=== PATIENT | female | born 1980 | race Two or more races ===

== ENCOUNTER 2019-05-24 18:51 | Emergency (ER) | payer MEDICAID ==
[~2019-05-24] VITALS: Ht 162.6 cm; Wt 73.0 kg
--- NOTE | 2019-05-24 19:41 | NUR ---
BIBS. FLU LIKE SYMPTOMS X 2 WEEKS. PRODUCTIVE COUGH, NASAL CONGESTION,NAUSEA AND DIZZINESS TO ER BED 3 MD AT BEDSIDE FOR EVAL
[2019-05-24] MEDS ORDERED: ONDANSETRON HCL/PF 4 MG/2 ML VIAL ONE (19:59)
[2019-05-24] MEDS ORDERED: KETOROLAC TROMETHAMINE 15 MG/ML VIAL ONE (19:59)
[2019-05-24] MEDS ORDERED: IPRATROPIUM NEB FS 0.5 MG/2.5 ML AMPUL.NEB NEB ONE (20:00)
[2019-05-24] MEDS ORDERED: KETOROLAC TROMETHAMINE INJ 30 MG/ML VIAL IV ONE (20:00)
[2019-05-24] MEDS ORDERED: ALBUTEROL FS 2.5 MG/3 ML VIAL.NEB NEB ONE (20:00)
[2019-05-24] MEDS ORDERED: ONDANSETRON HCL/PF 4 MG/2 ML VIAL IVP ONE (20:00)
[2019-05-24] MEDS ORDERED: IV NS 0.9% 1,000 ML BAG IV ONE (20:00)
[2019-05-24 20:12] LABS: BASOPHILS % (AUTO) 0.7 % (0.0-2.0); EOSINOPHILS % (AUTO) 1.8 % (0.0-6.0); HEMATOCRIT 34 % (33-45); HEMOGLOBIN 11.6 g/dL (11.5-14.8); LYMPHOCYTES # (AUTO) 2.3 /CMM (0.8-4.8); LYMPHOCYTES % (AUTO) 36.7 % (20.0-44.0); MEAN CORPUSCULAR HGB CONC 34 g/dl (31.0-36.0); MEAN CORPUSCULAR VOLUME 87 fL (82-100); MONOCYTES # (AUTO) 0.5 /CMM (0.1-1.30); MONOCYTES % (AUTO) 8.5 % (2.0-12.0); NEUTROPHILS # (AUTO) 3.2 /CMM (1.8-8.9); NEUTROPHILS % (AUTO) 52.3 % (43.0-81.0); PLATELET COUNT (AUTO) 242 /CMM (150-450); RED BLOOD CELL COUNT(AUTO) 3.86 MIL/uL (4.0-5.2); WHITE BLOOD COUNT (AUTO) 6.1 K/uL (4.3-11.0)
[2019-05-24 20:19] LABS: CALCIUM, SERUM 8.9 mg/dL (8.5-10.1); CARBON DIOXIDE 27 mmol/L (21-32); CHLORIDE 107 mmol/L (98-107); CREATININE 0.6 mg/dL (0.6-1.3); GLUCOSE 93 mg/dL (74-106); SODIUM SERUM 141 mmol/L (136-145); UREA NITROGEN, BLOOD 6 mg/dL (7-18)
[2019-05-24] MEDS ORDERED: ALBUTEROL FS 2.5 MG/3 ML VIAL.NEB ONE (20:22)
[2019-05-24] MEDS ORDERED: IPRATROPIUM NEB FS 0.5 MG/2.5 ML AMPUL.NEB ONE (20:22)
[2019-05-24 20:25] LABS: ALANINE AMINOTRANSFERASE 26 U/L (12-78); ALBUMIN 3.6 g/dL (3.4-5.0); ALKALINE PHOSPHATASE 70 U/L (46-116); ASPARTATE AMINOTRANSFERASE 19 U/L (15-37); BILIRUBIN,DIRECT 0.1 mg/dL (0.0-0.2); BILIRUBIN,TOTAL 0.3 mg/dL (0.2-1.0); TOTAL PROTEIN, SERUM 7.2 g/dL (6.4-8.2)
--- NOTE | 2019-05-24 20:25 | NUR ---
RT AT BEDSIDE FOR TX
[2019-05-24 20:59] VITALS: BP 105/65
--- NOTE | 2019-05-24 20:59 | NUR ---
Patient discharged to home in stable condition. Written and verbal after care instructions given. Patient verbalizes understanding of instruction.
== END 2019-05-24 21:00 | disposition home or self-care (01) ==
LOC: ER 19:04
DX: J06.9 Acute upper respiratory infection, unspecified (principal); Z90.89 Acquired absence of other organs; Z90.49 Acquired absence of other specified parts of digestive tract; Z88.0 Allergy status to penicillin
CPT/HCPCS: 36415; 71045; 80048; 80076; 83690; 84484; 85025; 94640; 96374; 96375; 99285; J1885; J2405; J7030

== ENCOUNTER 2019-06-24 14:29 | Emergency (ER) | payer MEDICAID ==
[~2019-06-24] VITALS: Ht 154.9 cm; Wt 72.6 kg
[2019-06-24 14:35] VITALS: BP 113/83
[2019-06-24] MEDS ORDERED: ALBU8.5H8 IH (14:43)
[2019-06-24] MEDS ORDERED: IBUP-1955 PO (14:43)
[2019-06-24] MEDS ORDERED: LORA10TA7 PO (14:43)
== END 2019-06-24 15:14 | disposition home or self-care (01) ==
LOC: ER 14:34
DX: J06.9 Acute upper respiratory infection, unspecified (principal); Z90.89 Acquired absence of other organs; Z90.49 Acquired absence of other specified parts of digestive tract; Z88.0 Allergy status to penicillin; Z79.899 Other long term (current) drug therapy
CPT/HCPCS: 71045-TC

== ENCOUNTER 2020-07-02 05:31 | Emergency (ER) | payer MEDICAID ==
[~2020-07-02] VITALS: Ht 162.6 cm; Wt 63.5 kg
[2020-07-02 05:31] VITALS: BP 114/74
[~2020-07-02 05:31] MED LIST: ALBU8.5H8 IH; IBUP-1955 PO; LORA10TA7 PO
== END 2020-07-02 06:25 | disposition home or self-care (01) ==
LOC: ER 05:35
DX: J06.9 Acute upper respiratory infection, unspecified (principal); Z90.89 Acquired absence of other organs; Z90.49 Acquired absence of other specified parts of digestive tract; Z88.0 Allergy status to penicillin; Z79.899 Other long term (current) drug therapy

== ENCOUNTER 2022-01-24 14:52 | Emergency (ER) | payer MEDICAID ==
[~2022-01-24] VITALS: Ht 162.6 cm; Wt 63.5 kg
[2022-01-24 15:15] VITALS: BP 113/70
[2022-01-24] MEDS ORDERED: KETOROLAC TROMETHAMINE INJ 60 MG/2 ML VIAL IM ONE (16:00)
[2022-01-24] MEDS ORDERED: NAPR-1164 PO (16:06)
[2022-01-24] MEDS ORDERED: KETOROLAC TROMETHAMINE INJ 30 MG/ML VIAL ONE (16:15)
== END 2022-01-24 16:20 | disposition home or self-care (01) ==
LOC: ER 14:56
DX: M25.531 Pain in right wrist (principal); Z90.89 Acquired absence of other organs; Z90.49 Acquired absence of other specified parts of digestive tract; Z88.0 Allergy status to penicillin; Z79.899 Other long term (current) drug therapy
CPT/HCPCS: 99283; 29125; 96372; J1885

== ENCOUNTER 2022-05-07 18:33 | Emergency (ER) | payer BC ==
[~2022-05-07] VITALS: Ht 162.6 cm; Wt 63.5 kg
[~2022-05-07 18:33] MED LIST changes: +NAPR-1164 PO
[2022-05-07] MEDS ORDERED: IBUPROFEN 600 MG TABLET ONE (20:29)
[2022-05-07] MEDS ORDERED: CLINDAMYCIN HCL 150 MG CAPSULE ONE (20:29)
[2022-05-07] MEDS ORDERED: IBUPROFEN 600 MG TABLET PO ONE (20:30)
[2022-05-07] MEDS ORDERED: CLINDAMYCIN HCL 150 MG CAPSULE PO ONE (20:30)
[2022-05-07] MEDS ORDERED: CLIN300C12 PO (21:28)
--- NOTE | 2022-05-07 21:29 | NUR ---
Patient discharged to home by Dr Dumont in stable condition. Written and verbal after care instructions given. Patient verbalizes understanding of instruction.
--- NOTE | 2022-05-07 21:46 | NUR ---
LAB CALLED, PT COVID POSITIVE, PT NOTIFIED, MD AWARE
[2022-05-07 21:49] VITALS: BP 110/70
== END 2022-05-07 21:49 | disposition home or self-care (01) ==
LOC: ER 18:42
DX: U07.1 COVID-19 (principal); J02.0 Streptococcal pharyngitis; Z90.89 Acquired absence of other organs; Z90.49 Acquired absence of other specified parts of digestive tract; Z88.0 Allergy status to penicillin; Z79.899 Other long term (current) drug therapy
CPT/HCPCS: 99283; 87426; C9803